=== PATIENT | male | born 1995 | race African-American/Black ===

== ENCOUNTER 2016-08-23 10:13 | Emergency (ER) | payer BC ==
[~2016-08-23] VITALS: Ht 165.1 cm; Wt 63.5 kg
[2016-08-23 10:23] VITALS: BP 134/87
== END 2016-08-23 10:58 | disposition home or self-care (01) ==
LOC: ER 10:16
DX: L30.9 Dermatitis, unspecified (principal); H01.004 Unspecified blepharitis left upper eyelid; H01.001 Unspecified blepharitis right upper eyelid
CPT/HCPCS: A4606; Z7610